=== PATIENT | female | born 1965 | race Caucasian/White ===

== ENCOUNTER → 2016-12-05 | Outpatient (CLI) | payer OTHER ==
[~2016-12-05] MED LIST: ALBUTEROL17 GM; ATARAX PO; COLACE50 MG PO; HYDROCODON-ACE1 EAC1 PO; LASIX20 MG PO; PREDNISONE10 MG/DOSE PO; SYNTHROID0.15 MG PO; TAGAMET300 MG PO; VICODIN 5/1 TAB 5/50 PO; XANAX0.5 MG PO; ZYRTEC10 M2 PO
--- NOTE | ~2016-12-05 | US128 ---
[id number] [facility] [address] [place], [place] [address] [id number] MR#: [id number] Acc #: [id number] NAME: JOAN ANDREW : 1965 SEX: F STUDY DATE/TIME: 12/05/2016 13:25 UNIT: [facility]US ROOM: STUDY DESCRIPTION: Thyroid Attending Physician: Lambert Haro M.D. Referring Physician: Lambert Haro M.D. Ordering Physician: Lambert Haro M.D. Primary Care Physician: Lambert Haro M.D. MEDICAL IMAGING REPORT This report is preliminary unless electronic signature is present EXAM Thyroid ultrasound 12/05/2016 HISTORY Hypothyroidism unspecified. Patient on thyroid hormone replacement therapy for 27 years. FINDINGS The right thyroid lobe measured 1.8 cm x 9 mm x 7 mm while the left lobe measured 8 mm x 7 mm x 2 cm. The isthmus measured 3 mm in the AP direction. Both thyroid lobes are heterogeneous in echotexture but demonstrate no cystic or solid nodules. There are no masses extrinsic to the thyroid. IMPRESSION Small heterogeneous thyroid demonstrating no discrete cystic or solid nodules. Dictated by... Wyatt Meeks M.D. THIS IS AN ELECTRONICALLY VERIFIED REPORT Wyatt Meeks M.D. at 12/06/2016 8:06 AM ABDELRAHMAN/gurdeep TD: 12/05/2016 20:03 JOB #: [id number] MEDICAL IMAGING REPORT Page 1 of 1 COPY
== END | disposition home or self-care (01) ==
LOC: CGUS 12:53
DX: E03.9 Hypothyroidism, unspecified (principal)
CPT/HCPCS: 76536